=== PATIENT | female | born 1980 | race Caucasian/White ===

== ENCOUNTER 2019-07-22 20:36 | Emergency (ER) | payer BC ==
[~2019-07-22] VITALS: Ht 157.5 cm; Wt 63.5 kg
--- NOTE | 2019-07-22 20:50 | NUR ---
Patient ambulated with stable gait. A/Ox4. Speech is clear, speaks in complete sentences. No acute neuro deficits noted. Patient came in for c/o urinary frequency, burning upon urination. Patient [place] at an urgent care [place] prior to presenting to the ED.
--- NOTE | 2019-07-22 20:56 | NUR ---
ERMD AT BEDSIDE MSE
[2019-07-22] MEDS ORDERED: ACETAMINOPHEN ES 500 MG TABLET PO ONE (21:00)
[2019-07-22] MEDS ORDERED: ACETAMINOPHEN ES 500 MG TABLET ONE (21:11)
[2019-07-22 21:33] LABS: *BILIRUBIN,URIN NEGATIVE (NEGATIVE); *BLOOD, URINE 2+ (NEGATIVE); *CLARITY,URINE CLEAR (CLEAR); *COLOR,URINE YELLOW (YELLOW); *KETONES,URINE NEGATIVE (NEGATIVE); *UROBILINOGEN,URINE 0.2 E.U./dl (NORMAL); LEUKOCYTE ESTERASE ,URINE NEGATIVE (NEGATIVE); NITRITE, URINE NEGATIVE (NEGATIVE); PH,URINE 5.5 (5.0-8.0); UGLUCOSE NEGATIVE (NEGATIVE)
[2019-07-22 21:38] LABS: MUCUS,URINE MANY /LPF (0-FEW); SQUAMOUS EPITHELIAL CELL,UR FEW /HPF (NONE SEEN); WBC,URINE 0-3 /HPF (0-3)
[2019-07-22 22:02] VITALS: BP 113/72
--- NOTE | 2019-07-22 22:02 | NUR ---
Patient discharged to home in stable conditon. Written and verbal after care instructions given. Patient verbalizes understanding of instructions. Patient ambulated with stable gait.
== END 2019-07-22 22:03 | disposition home or self-care (01) ==
LOC: ER 20:40
DX: B34.9 Viral infection, unspecified (principal); M54.5 Low back pain
CPT/HCPCS: 87086; A4663; A9150